=== PATIENT | female | born 1995 | race Caucasian/White ===

== ENCOUNTER 2017-05-04 12:00 | Emergency (ER) | payer MEDICAID, OTHER, SELFPAY ==
[~2017-05-04] VITALS: Ht 149.9 cm; Wt 71.1 kg
[2017-05-04 12:03] VITALS: BP 113/83
== END 2017-05-04 12:33 | disposition home or self-care (01) ==
LOC: ED 12:27
DX: H92.02 Otalgia, left ear (principal); F17.210 Nicotine dependence, cigarettes, uncomplicated
CPT/HCPCS: 99283